=== PATIENT | male | born 1945 | race Caucasian/White ===

== ENCOUNTER 2017-01-07 04:04 | Emergency (ER) | payer MEDICARE, BC ==
[~2017-01-07] VITALS: Ht 195.6 cm; Wt 97.7 kg
[2017-01-07] MEDS ORDERED: SODIUM CHLORIDE 0.9% 1,000ML IV ONE (05:00)
[2017-01-07] MEDS ORDERED: PLEASE ENTER ALLERGIES MC SCH ×2 (05:00)
[2017-01-07 05:46] LABS: ASPARTATE AMINO TRANSFERASE 23 U/L (15-37)
[2017-01-07 05:48] LABS: BLOOD UREA NITROGEN 25 mg/dL (7-18)
[2017-01-07 06:34] LABS: HEMATOCRIT 31.3 % (39.2-51.8); HEMOGLOBIN 10.5 g/dL (13.7-18.0); WHITE BLOOD COUNT 4.8 x10^3/uL (3.4-10)
[2017-01-07 06:35] LABS: DIFF TOTAL CELLS COUNTED 100 CELL DIFF
[2017-01-07] MEDS ORDERED: TAMS0.4C2 PO (06:53)
[2017-01-07] MEDS ORDERED: HYDR500C3 PO (06:54)
[2017-01-07 07:18] LABS: ANISOCYTOSIS 1+; GIANT PLATELETS 1+; LARGE PLATELETS 1+; VERIFY COUNTS? YES
[2017-01-07 08:17] VITALS: BP 127/66
== END 2017-01-07 08:20 | disposition home or self-care (01) ==
LOC: ED 05:28
DX: C92.10 Chronic myeloid leukemia, BCR/ABL-positive, not having achieved remission (principal); R31.0 Gross hematuria; N40.0 Benign prostatic hyperplasia without lower urinary tract symptoms; Z87.891 Personal history of nicotine dependence
CPT/HCPCS: 36415; 74176; 80053; 81001; 85025; 87086; 96360; 96361; 99285; J7030